=== PATIENT | female | born 1980 | race Two or more races ===

== ENCOUNTER 2024-11-23 13:44 | Outpatient (RCR) | payer MEDICAID, SELFPAY ==
--- NOTE | 2024-11-23 16:13 | CTCCONSULT_ITS ---
[facility] [address] [place], [place] [address] Consultation Note Date: 11/23/2024 MR#: [id number] Name: GERMAN ARANA : 1980 Dx: C83.38 Diffuse large B-cell lymphoma; lymph node of multiple sites Referring physician. [facility] Reason for consultation. 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 Patient received reportedly had 4 cycles of chemo and radiation therapy to the right neck site completed at [facility] in [place]. Diagnosis was made 07/06/2019, morphology and immunostaining conclusive for diffuse large cell non-Hodgkin lymphoma anaplastic variant. Immunophenotype B - CD20+ postcentral germinal type -MUM1-+ CD10 and BCL?6 - and in 2019 patient received chemo x 3 sessions and radiotherapy 20 sessions also in 2019. Patient had every 6 months PET scan posttreatment last received 2021 all unremarkable according to patient. No recent imaging studies performed. Patient denies chills fever weight loss then or now so the stage appears to be 1A right neck, and achieving complete response after initial treatment then. 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 History of thyroid disease prior radiation therapy influenza Meds. 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 Physical Exam: General: Adequate nourished appearing lady in no acute distress HEENT: There is palpable radiation changes in the right neck no discrete nodes felt. No oral lesions no cervical or supraclavicular apathy CV: Chest clear to auscultation heart regular rate and rhythm ABD: Soft and organomegaly or tenderness EXT: No signs of clubbing or edema. Assessment:1. Stage IA diffuse large B cell lymphoma anaplastic variant diagnosed from biopsy of the right neck 2018 in [place]; reportedly 3 sessions of chemo along with 20 sessions of radiation therapy completed 2019. 2. Reportedly achieved complete response with several PET scans the last performed 3 years ago in 2021. 3. Clinically no sign of recurrence at this time. 4. Get PET for restaging lab results from recently ordered [facility] and see patient again in 2 months. Cc: [facility] Electronically signed by: Hernando See MD, DABR 11/23/2024 4:10 PM
== END 2024-11-24 23:59 | disposition home or self-care (01) ==
LOC: SCTC 13:44
PROVIDERS: PCP Physician Assistant; Referring Provider Physician Assistant; Visit Provider Radiology Therapeutic Radiology
DX: Z08 Encounter for follow-up examination after completed treatment for malignant neoplasm (principal); Z85.72 Personal history of non-Hodgkin lymphomas; Z92.3 Personal history of irradiation; Z92.21 Personal history of antineoplastic chemotherapy
CPT/HCPCS: 99213; G0463

== ENCOUNTER → 2025-01-04 | Outpatient (CLI) | payer MEDICAID, SELFPAY ==
[2025-01-04 11:36] LABS: HCG Qualitative,Urine Negative
--- NOTE | 2025-01-04 12:30 | XR_ITS ---
EXAMINATION: PET/CT FUSION SKULL TO THIGH EXAM DATE AND TIME: January 04, 2025, 12:51 PM INDICATIONS: Diagnosis lymphoma, restaging CTDI:vol (mGy) 5.17 DLP: (mGycm) 472.05 PROCEDURE: 16 mCi FDG was administered intravenously To allow for distribution and uptake of radiotracer, the patient was allowed to rest quietly in a shielded room. Imaging was performed on an integrated 16-slice PET/CT scanner, with scanning from the skull base to the mid thigh. Serum blood glucose at the time of the injection was measured 98 mg/dL. CT scanning was performed without oral or intravenous contrast material. FINDINGS: Head and Neck: Hypermetabolic left oropharynx, axial image 37, measuring 21 x 18 mm Milder hypermetabolic activity right oropharynx, 13 x 14 mm Chest: There is no gael hypermetabolism in the chest. There are no pulmonary nodules. Abdomen and Pelvis: There is no gael hypermetabolism in retroperitoneal or pelvic chains. The spleen is normal in size and FDG avidity. Musculoskeletal: Marrow uptake is within normal range. IMPRESSION: Hypermetabolic left oropharynx 21 x 18 mm Hypermetabolic right oropharynx 13 x 14 mm Clinical correlation advised Advise MRI soft tissue neck follow-up pre and postcontrast No mediastinal abdominal or pelvic hypermetabolic lymphadenopathy
== END | disposition home or self-care (01) ==
LOC: CDIM 10:55 → COPL 11:07 → CDIM 01-12 06:47
PROVIDERS: PCP Physician Assistant; Referring Provider Radiology Therapeutic Radiology; Visit Provider Radiology Therapeutic Radiology
DX: C83.38 Diffuse large B-cell lymphoma, lymph nodes of multiple sites (principal); Z32.00 Encounter for pregnancy test, result unknown
CPT/HCPCS: 78815; 81025; A9552